=== PATIENT | female | born 1985 | race Caucasian/White ===

== ENCOUNTER → 2021-09-29 | Outpatient (REF) | payer BC | LOC: M SFHCLERA 11:42 | PROVIDERS: ATTEND Nurse Practitioner Family | DX: R87.610 Atypical squamous cells of undetermined significance on cytologic smear of cervix (ASC-US) (principal); Z12.4 Encounter for screening for malignant neoplasm of cervix; Z77.9 Other contact with and (suspected) exposures hazardous to health | CPT/HCPCS: 87624; G0123 ==

== ENCOUNTER → 2022-05-25 | Outpatient (REF) | payer BC | LOC: M SFHCWAGY 13:09 | PROVIDERS: ATTEND Specialist | DX: Z01.419 Encounter for gynecological examination (general) (routine) without abnormal findings (principal) | CPT/HCPCS: 87624; G0123 ==